=== PATIENT | male | born 1985 | race Caucasian/White ===

== ENCOUNTER 2018-05-22 10:33 | Emergency (ER) | payer MEDICARE, MEDICAID ==
[2018-05-22] MEDS ORDERED: IBUPROFEN 800 MG TABLET PO STA (12:08)
[2018-05-22] MEDS ORDERED: CYCLOBENZAPRINE 10 MG TABLET PO STA (12:08)
--- NOTE | 2018-05-22 12:21 | ED Physician Documentation ---
PD HPI BACK PAIN - Stated complaint Stated Complaint: BACK INJ - Chief complaint Chief Complaint: Back Pain - History obtained from History obtained from: Patient - History of Present Illness Timing - onset: Last night Timing - details: Gradual onset, Still present Pain level max: 7 Pain level now: 7 Location: Lower Quality: Pain, Spasm, Sharp Associated symptoms: Numbness. No: Fever, Weakness, Incontinent of urine, Unable to urinate, Hematuria, Incontinent of stool Improves with: Rest Worsened by: Movement, Lifting, Twisting Contributing factors: Lifting, Twisting, Trauma Similar symptoms before: Work up / diagnostics Recently seen: Not recently seen - Additional information Additional information: 33-year-old male with history of hypertension and chronic back pain since he was 21 years of age and was informed he has DJD and herniated disc. Here with complaint of low back pain since last night after he was trying to restrain his son from kicking and hitting his . This happened again today when he embrace his son from the back to make him stop his aggressive behavior and they both landed on top of the bed. Patient states he would have intermittent left leg numbness when there is pressure on his back from any kind of injury. He denies any saddle paresthesia or problems with his urine or bowel movements.He states he usually takes Motrin at 800 mg and Flexeril for his chronic back pain. Review of Systems Ten Systems: 10 systems reviewed and negative Constitutional: denies: Fever, Myalgias Cardiac: denies: Chest pain / pressure Respiratory: denies: Dyspnea GI: denies: Abdominal Pain, Vomiting : denies: Dysuria, Frequency Musculoskeletal: reports: Back pain, Pain with weight bearing. denies: Neck pain, Extremity pain, Joint pain, Extremity swelling, Joint swelling Neurologic: reports: Numbness. denies: Generalized weakness, Focal weakness PD PAST MEDICAL HISTORY - Past Medical History Cardiovascular: Hypertension Respiratory: Asthma, Sleep apnea, CPAP use Neuro: Head injury Endocrine/Autoimmune: None GI: None : None HEENT: None Psych: Anxiety, Bipolar disorder, ADD/ADHD, Post traumatic stress disorder Musculoskeletal: Chronic back pain Derm: Eczema - Past Surgical History Past Surgical History: No - Present Medications Home Medications: Ambulatory Orders Medication Instructions Recorded Confirmed Amphetamine [Adzenys Xr-Odt 6.3 mg 6.3 mg PO TID 05/22/18 05/22/18 Tablet] Clonidine HCl [Catapres] 1 tab PO BID 05/22/18 05/22/18 Cyclobenzaprine [Flexeril] 10 mg PO TID PRN #20 tablet 05/22/18 Divalproex Sodium [Depakote] 750 mg PO BID 05/22/18 05/22/18 Ibuprofen [Motrin] 800 mg PO Q8H PRN #30 tablet 05/22/18 LORazepam [Lorazepam] 1 tab PO QID PRN 05/22/18 05/22/18 - Allergies Allergies/Adverse Reactions: Allergies Allergy/AdvReac Type Severity Reaction Status Date / Time codeine AdvReac Rash Verified 05/22/18 10:50 - Social History Does the pt smoke?: No Smoking Status: Never smoker Does the pt drink ETOH?: No Does the pt have substance abuse?: No Substance Use and Type: Marijuana - Immunizations Immunizations are current?: Yes - POLST Patient has POLST: No PD ED PE NORMAL - Vitals Vital signs reviewed: Yes - General General: Alert and oriented X 3, No acute distress, Well developed/nourished - HEENT HEENT: Moist mucous membranes, Pharynx benign - Neck Neck: Supple, no meningeal sign - Cardiac Cardiac: RRR, No murmur - Respiratory Respiratory: Clear bilaterally - Abdomen Abdomen: Normal bowel sounds, Soft, Non tender, Non distended - Back Back: No CVA TTP, No spinal TTP, Other (Patient appears uncomfortable when he stood up from sitting position and when he ambulated. He pointed at his bilateral low back gluteal muscle area as the source of his discomfort. With leg raising of both legs his low back pain increased.) - Derm Derm: Normal color, Warm and dry - Extremities Extremities: No deformity, No tenderness to palpate, Normal ROM s pain, No edema - Neuro Neuro: Alert and oriented X 3, No motor deficit, No sensory deficit - Psych Psych: Normal mood, Normal affect Results - Vitals Vitals: Vital Signs - 24 hr 05/22/18 10:46 Temperature 36.1 C L Heart Rate 92 Respiratory 20 Rate Blood Pressure 138/91 H O2 Saturation 96 Oxygen O2 Source Room air PD MEDICAL DECISION MAKING - ED course Complexity details: reviewed results, re-evaluated patient, considered differential (Chronic back pain due to herniated disc and DJD, lumbar strain, muscle spasm), d/w patient ED course: 1319 patient sitting the chair in no acute distress. Inform of x-ray results. We will discharged on Motrin and Flexeril. Instructed to follow-up with primary doctor for outpatient MRI and referral to a spine doctor. Departure - Departure Disposition: 01 Home, Self Care Clinical Impression: Back pain Qualifiers: Back pain location: low back pain Chronicity: acute Back pain laterality: unspecified Sciatica presence: with sciatica Sciatica laterality: bilateral sciatica Qualified Code(s): M54.42 - Lumbago with sciatica, left side; M54.41 - Lumbago with sciatica, right side Condition: Stable Instructions: ED Neck Back Pain General Prescriptions: Cyclobenzaprine [Flexeril] 10 mg PO TID PRN #20 tablet PRN Reason: Spasms Ibuprofen [Motrin] 800 mg PO Q8H PRN #30 tablet PRN Reason: PAIN &/OR FEVER Comments: Maintain safety especially while taking the muscle relaxant. Take the Motrin with food. Follow-up with your primary doctor this week and get the referral for spine doctor and MRI of your low back.If worse return to the emergency room.
--- NOTE | 2018-05-22 13:01 | XRAY Report ---
Reason: pain Procedure Date: 05/22/2018 Accession Number: [id number] / [id number] Procedure: XR - Lumbar Spine 2 View CPT Code: FULL RESULT: EXAM: LUMBOSACRAL SPINE RADIOGRAPHY EXAM DATE: 05/22/2018 12:25 PM. CLINICAL HISTORY: Pain. COMPARISONS: None. TECHNIQUE: 3 views. FINDINGS: Alignment: There is mild apex right curvature. No significant spondylolisthesis. Bones: Five [id number] lumbar vertebral bodies are present. No acute fracture demonstrated. Disks: Suggestion of minimal disk height loss at L4-L5. Disk heights elsewhere are relatively well preserved. Facets: No significant facet degeneration. Sacroiliac Joints: Unremarkable. Soft Tissues: The visualized bowel gas pattern is unremarkable. IMPRESSION: 1. No acute fracture. 2. Suggestion of minimal degenerative disk disease at L4-L5. 3. Mild apex right curvature of the lumbar spine, which may be positional or indicate mild scoliosis. [facility]
[2018-05-22 13:51] VITALS: BP 116/78
== END 2018-05-22 13:51 | disposition home or self-care (01) ==
LOC: ED 10:33
DX: M54.41 Lumbago with sciatica, right side (principal); M54.42 Lumbago with sciatica, left side; I10 Essential (primary) hypertension; G89.29 Other chronic pain
CPT/HCPCS: 72100; 99283; A9270